=== PATIENT | female | born 1975 ===

== ENCOUNTER 2018-01-09 12:50 | Inpatient (IN) | payer OTHER ==
[~2018-01-09] VITALS: Ht 170.2 cm; Wt 88.5 kg
[2018-02-04] MEDS ORDERED: PRENATAL FORMU1 EAC1 PO (09:09)
[2018-02-04] MEDS ORDERED: SYNTHROID150 MCG PO (09:09)
== END 2018-02-06 10:23 | disposition home or self-care (01) | DRG 775 ==
LOC: OB/GYN 02-02 12:47 → LDR 02-04 05:50 → SURG-SUITE 02-04 05:50
PROC: 10E0XZZ Delivery of Products of Conception, External Approach (ICD-10-PCS; principal; 2018-02-04)
PROC: 3E033VJ Introduction of Other Hormone into Peripheral Vein, Percutaneous Approach (ICD-10-PCS; 2018-02-04)
PROC: 4A1HXCZ Monitoring of Products of Conception, Cardiac Rate, External Approach (ICD-10-PCS; 2018-02-04)
PROC: 0HQ9XZZ Repair Perineum Skin, External Approach (ICD-10-PCS; 2018-02-04)
DX: O70.0 First degree perineal laceration during delivery (principal); Z3A.40 40 weeks gestation of pregnancy; Z37.0 Single live birth